=== PATIENT | female | born 1965 | race Caucasian/White ===

== ENCOUNTER 2019-07-12 13:53 | Emergency (ER) | payer MEDICAID ==
[~2019-07-12] VITALS: Ht 165.1 cm; Wt 142.9 kg
[~2019-07-12 13:53] MED LIST: BUSP10TA90 PO; DIVA500T53 PO; GABA300C10 PO; HYDR50CA PO; LAMO150T2 PO; LITH300C3 PO; LORA-655 PO; OLAN20TA13 PO
[2019-07-12] MEDS ORDERED: SODIUM CHLORIDE 0.9% 1,000 ML IV ONE (14:40)
[2019-07-12] MEDS ORDERED: DONNATAL 5ml ORAL Elix (BELLADONNA ALK-PHENOBARB) PO ONE (14:45)
[2019-07-12] MEDS ORDERED: LIDOCAINE VISCOUS 2% 15ML UD PO ONE (14:45)
[2019-07-12] MEDS ORDERED: ALUM & MAG HYDROX-SIMETH LIQ(MAALOX) 30 ML PO ONE (14:45)
[2019-07-12 15:38] LABS: Basophils # (auto) 0 uL; Basophils % (auto) 0.7 % (0.0-2.0); Eosinophils # (auto) 0.2 uL; Eosinophils % (auto) 3.3 % (0.0-7.0); Hematocrit 41.7 % (36.0-46.0); Hemoglobin 13.7 g/dL (12.2-16.2); Lymphocytes # (auto) 2.2 uL; Lymphocytes % (auto) 33.1 % (10.0-50.0); Mean Corpuscular Hemoglobin 28.8 pg (28.0-32.0); Mean Corpuscular Hgb Conc. 32.9 g/dL (32.0-36.0); Mean Corpuscular Volume 87.5 fL (80.0-100.0); Monocytes # (auto) 0.5 uL; Monocytes % (auto) 8.3 % (0.0-12.0); Neutrophils # (auto) 3.5 uL; Neutrophils % (auto) 54.6 % (37.0-80.0); Platelet Count (auto) 271 10^3/uL (140-450); Red Blood Cells 4.76 10^6/uL (4.0-5.20); Red Cell Distribution Width 14.1 % (11.8-14.3); White Blood Cell 6.5 10^3/uL (4.4-10.8)
[2019-07-12 15:57] LABS: Albumin 3.6 g/dL (3.4-5.0); Anion Gap 4 (5-15); Blood Urea Nitrogen 12 mg/dL (7-18); Calcium 9.1 mg/dL (8.5-10.1); Carbon Dioxide 29 mmol/L (21-32); Chloride 110 mmol/L (98-107); Glucose 94 mg/dL (74-106); Potassium 4.2 mmol/L (3.5-5.1); Sodium 143 mmol/L (136-145)
[2019-07-12 16:03] LABS: Alanine Aminotransferase 25 U/L (13-56); Alkaline Phosphatase 119 U/L (45-117); Aspartate Aminotransferase 19 U/L (15-37); BUN/Creatinine Ratio 10.9; Bilirubin, Total 0.5 mg/dL (0.2-1.0); GFR African American 67 mL/min; GFR Non-African American 55 mL/min; Total Protein 6.9 g/dL (6.4-8.2)
[2019-07-12 16:31] LABS: INR 0.98 (0.9-1.15)
[2019-07-12 18:07] VITALS: BP 132/84
== END 2019-07-12 18:08 | disposition home or self-care (01) ==
LOC: EDUNIT# 13:53 → ER 14:04
DX: K29.70 Gastritis, unspecified, without bleeding (principal); R06.02 Shortness of breath; R05 Cough; J44.9 Chronic obstructive pulmonary disease, unspecified; I10 Essential (primary) hypertension; F17.210 Nicotine dependence, cigarettes, uncomplicated
CPT/HCPCS: 36415; 71045; 74176; 80053; 83880; 84484; 85025; 85610; 85730; 93005

== ENCOUNTER 2021-01-12 19:54 | Emergency (ER) | payer MEDICAID ==
[~2021-01-12] VITALS: Ht 165.1 cm; Wt 136.1 kg
[~2021-01-12 19:54] MED LIST changes: +DIVA500T2 PO; -DIVA500T53 PO; +OLAN20TA PO; -OLAN20TA13 PO
[2021-01-12 21:40] VITALS: BP 147/70
[2021-01-12] MEDS ORDERED: IOHEXOL 300 MG/ML 100ML BOTTLE IJ ONE (21:57)
[2021-01-12 22:01] LABS: Basophils # (auto) 0.2 10 ^3/uL (0-0.2); Basophils % (auto) 2.5 % (0.0-2.0); Eosinophils # (auto) 0 10 ^3/uL (0-0.8); Eosinophils % (auto) 0.2 % (0.0-7.0); Hematocrit 39.9 % (36.0-46.0); Hemoglobin 13.7 g/dL (12.2-16.2); Lymphocytes # (auto) 2.1 10 ^3/uL (0.4-5.4); Lymphocytes % (auto) 26.4 % (10.0-50.0); Mean Corpuscular Hemoglobin 29.5 pg (28.0-32.0); Mean Corpuscular Hgb Conc. 34.4 g/dL (32.0-36.0); Mean Corpuscular Volume 85.9 fL (80.0-100.0); Monocytes # (auto) 0.4 10 ^3/uL (0-1.3); Monocytes % (auto) 5.7 % (0.0-12.0); Neutrophils # (auto) 5.1 10 ^3/uL (1.6-8.6); Neutrophils % (auto) 65.2 % (37.0-80.0); Nucleated Red Blood Cells % 0.1 %; Platelet Count (auto) 305 10^3/uL (140-450); Red Blood Cells 4.65 10^6/uL (4.0-5.20); White Blood Cell 7.8 10^3/uL (4.4-10.8)
[2021-01-12 22:14] LABS: Calcium 9.1 mg/dL (8.5-10.1); Chloride 110 mmol/L (98-107); Potassium 5.2 mmol/L (3.5-5.1); Sodium 139 mmol/L (136-145)
[2021-01-12 22:23] LABS: Alanine Aminotransferase 33 U/L (13-56); Albumin 3.7 g/dL (3.4-5.0); Alkaline Phosphatase 104 U/L (45-117); Anion Gap 6 (5-15); Aspartate Aminotransferase 41 U/L (15-37); BUN/Creatinine Ratio 14.8; Bilirubin, Total 0.8 mg/dL (0.2-1.0); Blood Urea Nitrogen 13 mg/dL (7-18); Carbon Dioxide 23 mmol/L (21-32); GFR African American 85 mL/min; GFR Non-African American 71 mL/min; Glucose 93 mg/dL (74-106); Total Protein 7.1 g/dL (6.4-8.2)
[2021-01-13] MEDS ORDERED: ONDANSETRON HCL 4 MG/2 ML VIAL ONE (01:51)
[2021-01-13] MEDS ORDERED: ONDANSETRON HCL 4 MG/2 ML VIAL IV ONE (02:00)
== END 2021-01-13 01:56 | disposition home or self-care (01) ==
LOC: ER 19:54 → EDBD 19:54 → ER 01-13 01:56
DX: K57.30 Diverticulosis of large intestine without perforation or abscess without bleeding (principal); J44.9 Chronic obstructive pulmonary disease, unspecified; I10 Essential (primary) hypertension; F17.210 Nicotine dependence, cigarettes, uncomplicated; Z90.49 Acquired absence of other specified parts of digestive tract; Z79.899 Other long term (current) drug therapy; Z88.0 Allergy status to penicillin
CPT/HCPCS: 36415; 71045; 74177; 80053; 83690; 84484; 85025; 85049; 93005; 96374; 99285; J2405; Q9967

== ENCOUNTER 2022-05-15 09:26 | Inpatient (IN) | payer MEDICAID ==
[~2022-05-15] VITALS: Ht 165.1 cm; Wt 143.8 kg
[2022-05-15 10:00] LABS: Basophils # (auto) 0 10 ^3/uL (0-0.2); Basophils % (auto) 0.6 % (0.0-2.0); Eosinophils # (auto) 0.3 10 ^3/uL (0-0.8); Eosinophils % (auto) 3.6 % (0.0-7.0); Hematocrit 37.4 % (36.0-46.0); Hemoglobin 12.5 g/dL (12.2-16.2); Lymphocytes % (auto) 28.1 % (10.0-50.0); Mean Corpuscular Hemoglobin 28.9 pg (28.0-32.0); Mean Corpuscular Hgb Conc. 33.4 g/dL (32.0-36.0); Mean Corpuscular Volume 86.4 fL (80.0-100.0); Monocytes # (auto) 0.4 10 ^3/uL (0-1.3); Monocytes % (auto) 5.6 % (0.0-12.0); Neutrophils # (auto) 4.5 10 ^3/uL (1.6-8.6); Neutrophils % (auto) 62.1 % (37.0-80.0); Nucleated Red Blood Cells % 0.1 %; Red Blood Cells 4.33 10^6/uL (4.0-5.20); White Blood Cell 7.3 10^3/uL (4.4-10.8)
[2022-05-15 10:23] LABS: Potassium 3.9 mmol/L (3.5-5.1)
[2022-05-15 10:31] LABS: Albumin 3.7 g/dL (3.4-5.0); Bilirubin, Total 0.7 mg/dL (0.2-1.0); Calcium 8.9 mg/dL (8.5-10.1); Magnesium 2.4 mg/dL (1.6-2.6); Total Protein 6.5 g/dL (6.4-8.2)
[2022-05-15] MEDS ORDERED: LORA-655 PO (11:24)
[2022-05-15] MEDS ORDERED: FURO40TA4 PO (11:29)
[2022-05-15] MEDS ORDERED: AMLO-489 PO (11:29)
[2022-05-15] MEDS ORDERED: HYDR50CA2 PO (11:29)
[2022-05-15] MEDS ORDERED: ATOR10TA52 PO (11:29)
[2022-05-15] MEDS ORDERED: BUSP10TA31 PO (11:29)
[2022-05-15] MEDS ORDERED: ALBU108A5 INH (11:29)
[2022-05-15] MEDS ORDERED: QUET100T47 PO (11:29)
[2022-05-15] MEDS ORDERED: ASPI-325 PO (11:29)
[2022-05-15] MEDS ORDERED: LAMO25TA27 PO (11:29)
[2022-05-15] MEDS ORDERED: PANT40T PO (11:29)
[2022-05-15] MEDS ORDERED: DOCU100C10 PO (11:29)
[2022-05-15] MEDS ORDERED: ATEN25TA PO (11:29)
[2022-05-15] MEDS ORDERED: OXYB10TA14 PO (11:32)
[2022-05-15] MEDS ORDERED: LORazepam 2MG/ML-1ML VIAL ONE (11:34)
[2022-05-15] MEDS ORDERED: LORazepam 2MG/ML-1ML VIAL IV ONE (11:45)
[2022-05-15] MEDS ORDERED: POTASSIUM EFFERVESENT TAB 25 MEQ PO ONE ×2 (12:00)
[2022-05-15] MEDS ORDERED: methylPREDNISolone SOD SUCC 125 MG/2 ML VL IV ONE (12:00)
[2022-05-15] MEDS ORDERED: lamoTRIgine 100 MG TAB PO ONE (12:00)
[2022-05-15] MEDS ORDERED: lamoTRIgine 25 MG TAB PO ONE (12:00)
[2022-05-15] MEDS ORDERED: MORPHINE SULFATE INJ 2 MG/ml SYRG IV PRN ×2 (14:00)
[2022-05-15] MEDS ORDERED: ONDANSETRON HCL 4 MG/2 ML VIAL IV PRN (14:00)
[2022-05-15] MEDS ORDERED: NITROGLYCERIN 0.4 MG SL TAB SL PRN (14:00)
[2022-05-15] MEDS: methylPREDNISolone SOD SUCC 40 MG/ML VL IV SCH ×2 (14:00→23:01)
[2022-05-15] MEDS ORDERED: ACETAMINOPHEN 325 MG TAB PO PRN (14:00)
[2022-05-15] MEDS: busPIRone HCL 10 MG TAB PO SCH ×2 (14:41→23:02)
[2022-05-15 14:46] LABS: Urine Bacteria NONE SEEN /hpf (None Seen); Urine WBC <1 /hpf (0 - 5)
[2022-05-15] MEDS: AZITHROMYCIN 500MG/ 250ML 250 ML IV SCH (14:52)
[2022-05-15] MEDS: cefTRIAXone 1GM/50ML D5W 50 ML IV SCH (14:52)
[2022-05-15 14:59] LABS: Urine Blood Normal /uL (Negative); Urine Specific Gravity 1.005 (1.001-1.035)
[2022-05-15 15:43] VITALS: BP 149/94
[2022-05-15] MEDS: OXYBUTYNIN CHL 5 MG TAB PO SCH (23:02)
[2022-05-15] MEDS: DOCUSATE SOD 100 MG CAP PO SCH (23:02)
[2022-05-15] MEDS: ATORVASTATIN 20 MG TAB PO SCH (23:03)
[2022-05-15] MEDS: lamoTRIgine 25 MG TAB PO SCH (23:03)
[2022-05-16 05:38] LABS: Basophils # (auto) 0 10 ^3/uL (0-0.2); Basophils % (auto) 0.3 % (0.0-2.0); Eosinophils # (auto) 0 10 ^3/uL (0-0.8); Hematocrit 38.9 % (36.0-46.0); Lymphocytes # (auto) 0.8 10 ^3/uL (0.4-5.4); Lymphocytes % (auto) 9.3 % (10.0-50.0); Mean Corpuscular Hemoglobin 28.8 pg (28.0-32.0); Mean Corpuscular Hgb Conc. 33.4 g/dL (32.0-36.0); Mean Corpuscular Volume 86.4 fL (80.0-100.0); Monocytes # (auto) 0.2 10 ^3/uL (0-1.3); Monocytes % (auto) 2.5 % (0.0-12.0); Neutrophils # (auto) 7.9 10 ^3/uL (1.6-8.6); Neutrophils % (auto) 87.9 % (37.0-80.0); Red Cell Distribution Width 15.1 % (11.8-14.3); White Blood Cell 8.9 10^3/uL (4.4-10.8)
[2022-05-16 05:45] LABS: Albumin 3.5 g/dL (3.4-5.0); Potassium 4.2 mmol/L (3.5-5.1)
[2022-05-16 05:49] LABS: Bilirubin, Total 0.5 mg/dL (0.2-1.0); Total Protein 6.7 g/dL (6.4-8.2)
[2022-05-16] MEDS: busPIRone HCL 10 MG TAB PO SCH ×3 (05:56→23:12)
[2022-05-16] MEDS: methylPREDNISolone SOD SUCC 40 MG/ML VL IV SCH ×3 (05:56→23:12)
[2022-05-16] MEDS: ALBUTEROL SULF 2.5 MG/0.5ML(0.5%) NEB SOLN NEB PRN ×2 (08:53→19:02)
[2022-05-16] MEDS: IPRATROPIUM BROM 0.5 MG/2.5ML INH SOL NEB PRN ×2 (08:53→19:01)
[2022-05-16] MEDS: cefTRIAXone 1GM/50ML D5W 50 ML IV SCH (08:58)
[2022-05-16] MEDS ORDERED: cefTRIAXone 1GM/50ML D5W 50 ML IV SCH (09:00)
[2022-05-16] MEDS ORDERED: AZITHROMYCIN 500MG/ 250ML 250 ML IV SCH (10:00)
[2022-05-16] MEDS: ASPirin-EC 81 mg tab PO SCH (11:42)
[2022-05-16] MEDS: amLODIPine BESYLATE 5 MG TAB PO SCH (11:45)
[2022-05-16] MEDS: ENOXAPARIN SOD 40 MG/0.4 ML SYRINGE SC SCH (11:46)
[2022-05-16] MEDS: PANTOPRAZOLE 40 MG TAB PO SCH (11:46)
[2022-05-16] MEDS: QUEtiapine FUMARATE 100 MG TAB PO SCH (11:47)
[2022-05-16] MEDS: lamoTRIgine 25 MG TAB PO SCH ×2 (11:47→23:12)
[2022-05-16] MEDS: DOCUSATE SOD 100 MG CAP PO SCH ×2 (11:47→23:12)
[2022-05-16] MEDS: ATENOLOL 25 MG TAB PO SCH (11:47)
[2022-05-16] MEDS: AZITHROMYCIN 500MG/ 250ML 250 ML IV SCH (12:17)
[2022-05-16] MEDS ORDERED: OXYB10TA14 PO (17:18)
[2022-05-16] MEDS ORDERED: LORA1TAB23 PO (17:18)
[2022-05-16] MEDS ORDERED: BUDE1AER6 IN (17:30)
[2022-05-16] MEDS ORDERED: GABA300C10 PO (17:30)
[2022-05-16] MEDS ORDERED: BENA10TA15 PO (17:30)
[2022-05-16] MEDS ORDERED: LAMO200T34 PO (17:30)
[2022-05-16] MEDS: BUDESONIDE (INHALATION) 0.5 MG/2 ML NEB NEB SCH (22:39)
[2022-05-16] MEDS: IPRATROPIUM BROM 0.5 MG/2.5ML INH SOL NEB SCH (22:39)
[2022-05-16] MEDS: ALBUTEROL SULF 2.5 MG/0.5ML(0.5%) NEB SOLN NEB SCH (22:39)
[2022-05-16] MEDS: BUDESONIDE GLYCOPYRROLATE FORM IN SCH (23:00)
[2022-05-16] MEDS: ATORVASTATIN 20 MG TAB PO SCH (23:11)
[2022-05-16] MEDS: OXYBUTYNIN CHL 5 MG TAB PO SCH (23:23)
[2022-05-17] VITALS (7 sets, daily range): BP systolic 121–143; BP diastolic 57–78
[2022-05-17] MEDS: ALBUTEROL SULF 2.5 MG/0.5ML(0.5%) NEB SOLN NEB SCH ×6 (03:13→22:41)
[2022-05-17] MEDS: IPRATROPIUM BROM 0.5 MG/2.5ML INH SOL NEB SCH ×6 (03:13→22:41)
[2022-05-17] MEDS: BUDESONIDE (INHALATION) 0.5 MG/2 ML NEB NEB SCH ×2 (06:21→22:41)
[2022-05-17] MEDS: methylPREDNISolone SOD SUCC 40 MG/ML VL IV SCH ×3 (07:00→22:12)
[2022-05-17] MEDS: busPIRone HCL 10 MG TAB PO SCH ×3 (07:01→22:13)
[2022-05-17] MEDS: cefTRIAXone 1GM/50ML D5W 50 ML IV SCH (09:47)
[2022-05-17] MEDS: BUDESONIDE GLYCOPYRROLATE FORM IN SCH ×2 (10:00→23:23)
[2022-05-17] MEDS: PANTOPRAZOLE 40 MG TAB PO SCH (10:24)
[2022-05-17] MEDS: DOCUSATE SOD 100 MG CAP PO SCH ×2 (10:25→22:12)
[2022-05-17] MEDS: ASPirin-EC 81 mg tab PO SCH (10:25)
[2022-05-17] MEDS: lamoTRIgine 25 MG TAB PO SCH ×2 (10:26→22:13)
[2022-05-17] MEDS: amLODIPine BESYLATE 5 MG TAB PO SCH (10:26)
[2022-05-17] MEDS: ENOXAPARIN SOD 40 MG/0.4 ML SYRINGE SC SCH (10:27)
[2022-05-17] MEDS: QUEtiapine FUMARATE 100 MG TAB PO SCH (10:27)
[2022-05-17] MEDS: AZITHROMYCIN 500MG/ 250ML 250 ML IV SCH (10:33)
[2022-05-17] MEDS: ATENOLOL 25 MG TAB PO SCH (10:39)
[2022-05-17] MEDS: OXYBUTYNIN CHL 5 MG TAB PO SCH (22:12)
[2022-05-17] MEDS: ATORVASTATIN 20 MG TAB PO SCH (22:13)
[2022-05-18] MEDS: ALBUTEROL SULF 2.5 MG/0.5ML(0.5%) NEB SOLN NEB SCH ×6 (02:11→22:05)
[2022-05-18] MEDS: IPRATROPIUM BROM 0.5 MG/2.5ML INH SOL NEB SCH ×6 (02:11→22:05)
[2022-05-18 05:00] VITALS: BP 121/74
[2022-05-18] MEDS: busPIRone HCL 10 MG TAB PO SCH ×3 (05:38→21:37)
[2022-05-18] MEDS: methylPREDNISolone SOD SUCC 40 MG/ML VL IV SCH ×3 (05:39→21:43)
[2022-05-18] MEDS: BUDESONIDE (INHALATION) 0.5 MG/2 ML NEB NEB SCH ×2 (06:18→22:05)
[2022-05-18 09:00] VITALS: BP 149/88
[2022-05-18] MEDS: cefTRIAXone 1GM/50ML D5W 50 ML IV SCH (09:38)
[2022-05-18] MEDS: ASPirin-EC 81 mg tab PO SCH (09:38)
[2022-05-18] MEDS: AZITHROMYCIN 500MG/ 250ML 250 ML IV SCH (09:38)
[2022-05-18] MEDS: BUDESONIDE GLYCOPYRROLATE FORM IN SCH ×2 (09:38→21:43)
[2022-05-18] MEDS: lamoTRIgine 25 MG TAB PO SCH ×2 (09:38→21:37)
[2022-05-18] MEDS: PANTOPRAZOLE 40 MG TAB PO SCH (09:38)
[2022-05-18] MEDS: DOCUSATE SOD 100 MG CAP PO SCH ×2 (09:39→21:37)
[2022-05-18] MEDS: amLODIPine BESYLATE 5 MG TAB PO SCH (09:40)
[2022-05-18] MEDS: QUEtiapine FUMARATE 100 MG TAB PO SCH (09:40)
[2022-05-18] MEDS: ATENOLOL 25 MG TAB PO SCH (09:41)
[2022-05-18] MEDS: ENOXAPARIN SOD 40 MG/0.4 ML SYRINGE SC SCH (09:41)
[2022-05-18 11:03] VITALS: BP 146/84
[2022-05-18 12:40] VITALS: BP 142/85
[2022-05-18 16:48] VITALS: BP 138/86
[2022-05-18] MEDS: OXYBUTYNIN CHL 5 MG TAB PO SCH (21:37)
[2022-05-18] MEDS: ATORVASTATIN 20 MG TAB PO SCH (21:37)
[2022-05-18 22:00] VITALS: BP 139/84
[2022-05-19] MEDS: ALBUTEROL SULF 2.5 MG/0.5ML(0.5%) NEB SOLN NEB SCH ×6 (01:47→22:22)
[2022-05-19] MEDS: IPRATROPIUM BROM 0.5 MG/2.5ML INH SOL NEB SCH ×6 (01:47→22:22)
[2022-05-19] MEDS ORDERED: LORazepam 2MG/ML-1ML VIAL IV PRN (03:30)
[2022-05-19 05:00] VITALS: BP 143/85
[2022-05-19] MEDS: methylPREDNISolone SOD SUCC 40 MG/ML VL IV SCH ×3 (05:44→21:26)
[2022-05-19] MEDS: busPIRone HCL 10 MG TAB PO SCH ×3 (05:45→21:25)
[2022-05-19] MEDS: BUDESONIDE (INHALATION) 0.5 MG/2 ML NEB NEB SCH ×2 (06:35→22:22)
[2022-05-19] MEDS: cefTRIAXone 1GM/50ML D5W 50 ML IV SCH (08:41)
[2022-05-19] MEDS: AZITHROMYCIN 500MG/ 250ML 250 ML IV SCH (08:41)
[2022-05-19] MEDS: ENOXAPARIN SOD 40 MG/0.4 ML SYRINGE SC SCH (08:41)
[2022-05-19] MEDS: ASPirin-EC 81 mg tab PO SCH (08:42)
[2022-05-19] MEDS: DOCUSATE SOD 100 MG CAP PO SCH ×2 (08:43→21:25)
[2022-05-19] MEDS: ATENOLOL 25 MG TAB PO SCH (08:43)
[2022-05-19] MEDS: amLODIPine BESYLATE 5 MG TAB PO SCH (08:43)
[2022-05-19] MEDS: lamoTRIgine 25 MG TAB PO SCH ×2 (08:43→21:25)
[2022-05-19] MEDS: QUEtiapine FUMARATE 100 MG TAB PO SCH (08:44)
[2022-05-19] MEDS: PANTOPRAZOLE 40 MG TAB PO SCH (08:44)
[2022-05-19] MEDS: BUDESONIDE GLYCOPYRROLATE FORM IN SCH ×2 (08:52→21:32)
[2022-05-19 09:00] VITALS: BP 140/84
[2022-05-19 13:00] VITALS: BP 126/67
[2022-05-19 16:49] VITALS: BP 137/83
[2022-05-19] MEDS: OXYBUTYNIN CHL 5 MG TAB PO SCH (21:25)
[2022-05-19] MEDS: ATORVASTATIN 20 MG TAB PO SCH (21:26)
[2022-05-19 22:00] VITALS: BP 130/87
[2022-05-20] MEDS: IPRATROPIUM BROM 0.5 MG/2.5ML INH SOL NEB SCH ×4 (02:38→14:28)
[2022-05-20] MEDS: ALBUTEROL SULF 2.5 MG/0.5ML(0.5%) NEB SOLN NEB SCH ×4 (02:38→14:28)
[2022-05-20 05:00] VITALS: BP 141/87
[2022-05-20] MEDS: methylPREDNISolone SOD SUCC 40 MG/ML VL IV SCH (05:31)
[2022-05-20] MEDS: busPIRone HCL 10 MG TAB PO SCH (05:31)
[2022-05-20 07:35] VITALS: BP 118/68
[2022-05-20] MEDS: PANTOPRAZOLE 40 MG TAB PO SCH (09:11)
[2022-05-20] MEDS: ASPirin-EC 81 mg tab PO SCH (09:11)
[2022-05-20] MEDS: ENOXAPARIN SOD 40 MG/0.4 ML SYRINGE SC SCH (09:11)
[2022-05-20] MEDS: cefTRIAXone 1GM/50ML D5W 50 ML IV SCH (09:11)
[2022-05-20] MEDS: DOCUSATE SOD 100 MG CAP PO SCH (09:11)
[2022-05-20] MEDS: lamoTRIgine 25 MG TAB PO SCH (09:11)
[2022-05-20] MEDS: QUEtiapine FUMARATE 100 MG TAB PO SCH (09:12)
[2022-05-20] MEDS: amLODIPine BESYLATE 5 MG TAB PO SCH (09:12)
[2022-05-20] MEDS: ATENOLOL 25 MG TAB PO SCH (09:14)
[2022-05-20] MEDS: BUDESONIDE (INHALATION) 0.5 MG/2 ML NEB NEB SCH (09:18)
[2022-05-20] MEDS: AZITHROMYCIN 500MG/ 250ML 250 ML IV SCH (10:34)
[2022-05-20] MEDS ORDERED: AZIT250T8 PO (11:32)
[2022-05-20] MEDS ORDERED: METH4PAK PO (11:32)
[2022-05-20 12:20] VITALS: BP 128/64
[2022-05-20 16:15] VITALS: BP 133/78
== END 2022-05-20 18:20 | disposition home or self-care (01) | DRG 133 ==
LOC: EDBD 09:26 → ER 09:26 → TELE 14:08 → TELE-WESTW 05-17 04:04
PROVIDERS: ADMIT Nurse Practitioner Family; ATTEND Internal Medicine
PROC: 5A09357 Assistance with Respiratory Ventilation, Less than 24 Consecutive Hours, Continuous Positive Airway Pressure (ICD-10-PCS; principal; 2022-05-17)
PROC: 5A09357 Assistance with Respiratory Ventilation, Less than 24 Consecutive Hours, Continuous Positive Airway Pressure (ICD-10-PCS; 2022-05-18)
PROC: 5A09357 Assistance with Respiratory Ventilation, Less than 24 Consecutive Hours, Continuous Positive Airway Pressure (ICD-10-PCS; 2022-05-19)
DX: J96.21 Acute and chronic respiratory failure with hypoxia (principal); J15.9 Unspecified bacterial pneumonia; I13.0 Hypertensive heart and chronic kidney disease with heart failure and stage 1 through stage 4 chronic kidney disease, or unspecified chronic kidney disease; J44.0 Chronic obstructive pulmonary disease with (acute) lower respiratory infection; I50.9 Heart failure, unspecified; Z99.81 Dependence on supplemental oxygen; Z68.43 Body mass index [BMI] 50.0-59.9, adult; J44.1 Chronic obstructive pulmonary disease with (acute) exacerbation; G40.909 Epilepsy, unspecified, not intractable, without status epilepticus; F20.9 Schizophrenia, unspecified; J98.11 Atelectasis; F17.210 Nicotine dependence, cigarettes, uncomplicated; G47.33 Obstructive sleep apnea (adult) (pediatric); E66.01 Morbid (severe) obesity due to excess calories; N18.30 Chronic kidney disease, stage 3 unspecified; Z20.822 Contact with and (suspected) exposure to COVID-19; Z88.0 Allergy status to penicillin; Z28.310 Unvaccinated for COVID-19; Z79.899 Other long term (current) drug therapy; Z82.49 Family history of ischemic heart disease and other diseases of the circulatory system; Z82.5 Family history of asthma and other chronic lower respiratory diseases; Z90.49 Acquired absence of other specified parts of digestive tract
CPT/HCPCS: 36415; 36600; 71045; 80053; 81001; 82805; 83735; 83880; 84484; 85025; 87040; 87426; 87804; 87807; 93005; 94640; 94660; 96374; 97116; 97163; 97530; G0378; J0696; J2405